=== PATIENT | male | born 1955 ===

== ENCOUNTER 2024-02-01 14:41 | Emergency (ER) | payer OTHER ==
[2024-02-01] VITALS (10 sets, daily range): BP systolic 103–117; BP diastolic 61–74
[~2024-02-01] VITALS: Ht 160 cm; Wt 52.1 kg
[~2024-02-01 14:41] MED LIST: ASPIRIN 81 LOW81 MG PO; CHOLESTERO; CIPRO500 MG PO; CITALOPRAM40 MG PO; D325 MCG PO; HYDROCORT12 EX; HYTRIN5 MG/CAP PO; LEVOTHYROXIN88 MC1 PO; LEXAPRO20 MG PO; LIPITOR20 M1 PO; MELOXICAM7.5 MG PO; METOPROL TAR25 M1 PO; MOTRIN200 M1 OR; TOLTERODINE TART2 MG PO; TRAMADOL HCL50 MG PO; VICODIN1 TAB PO; ZANTAC150 M1 OR
[2024-02-01] MEDS ORDERED: NAPROXEN 250 MG/TAB PO ONE (15:00)
[2024-02-01] MEDS ORDERED: traMADol HCL 50 MG/TAB PO ONE (16:20)
[2024-02-01] MEDS ORDERED: TRAMADOL HYDROC50 M1 PO (16:41)
== END 2024-02-01 17:25 | disposition home or self-care (01) | DRG 536 ==
LOC: ED 14:41
DX: S32.591A Other specified fracture of right pubis, initial encounter for closed fracture (principal); W01.198A Fall on same level from slipping, tripping and stumbling with subsequent striking against other object, initial encounter; Y92.009 Unspecified place in unspecified non-institutional (private) residence as the place of occurrence of the external cause

== ENCOUNTER 2024-04-01 10:53 | Emergency (ER) | payer OTHER ==
[2024-04-01] VITALS (11 sets, daily range): BP systolic 108–144; BP diastolic 64–97
[~2024-04-01] VITALS: Ht 160 cm; Wt 50.8 kg
[~2024-04-01 10:53] MED LIST changes: +TRAMADOL HYDROC50 M1 PO
[2024-04-01] MEDS ORDERED: VITAMIN D-32000 UNI1 PO (11:16)
[2024-04-01] MEDS ORDERED: DETROL LA2 MG PO (11:17)
[2024-04-01] MEDS ORDERED: LEVOTHYROXIN100 MCG PO (11:17)
[2024-04-01] MEDS ORDERED: MELOXICAM15 MG PO (11:18)
[2024-04-01] MEDS ORDERED: BUSPAR10 MG PO (11:18)
[2024-04-01] MEDS ORDERED: TOPROL XL25 M1 PO (11:19)
[2024-04-01] MEDS ORDERED: CYMBALTA60 MG PO (11:19)
== END 2024-04-01 13:18 | disposition designated cancer center or children's hospital (05) | DRG 552 ==
LOC: ED 10:53
DX: S32.10XA Unspecified fracture of sacrum, initial encounter for closed fracture (principal); W01.0XXA Fall on same level from slipping, tripping and stumbling without subsequent striking against object, initial encounter; S32.501D Unspecified fracture of right pubis, subsequent encounter for fracture with routine healing; X58.XXXD Exposure to other specified factors, subsequent encounter